=== PATIENT | male | born 1950 | race Caucasian/White ===

== ENCOUNTER 2019-06-27 11:25 | Day surgery (SDC) | payer BC, MEDICARE ==
[2019-06-27] MEDS ORDERED: PROPOFOL 10 MG/ML VIAL IV ONE (11:26)
[2019-06-27] MEDS ORDERED: LIDOCAINE 2% MDV (20MG/ML) 20ML VIAL IV ONE (11:26)
--- NOTE | 2019-06-28 07:40 | Operative Note ---
DATE: 06/27/2019 OPERATION: COLONOSCOPY to the cecum with cold snare polypectomy. INDICATION: Prior history of adenomatous polyps. Patient with family history of colon cancer (brother). The patient returns today after 5 years for surveillance. ANESTHESIA: Intravenous sedation was administered by the department of anesthesiology and included Diprivan titrated to effect. PROCEDURE: Following informed consent from this alert individual including a discussion of the risks and benefits of the procedure and an opportunity for the patient to ask questions, the patient was in the left lateral decubitus position. A digital rectal examination was performed. No abnormalities were noted. Prostate was palpably normal. Following this, the Olympus [id number] video colonoscope was inserted into the rectum without resistance. The rectal mucosa had a normal appearance with normal folds and distensibility. The colonoscope was advanced up through the colon to the level of the cecum without much difficulty. Throughout the bowel the mucosa appeared normal, the folds were normal, and the bowel was fairly well distensible. The cecum was defined by noting the appendiceal orifice and ileocecal valve. The terminal ileum was cannulated and found to be normal as well. From the base of the cecum, the colonoscope was then withdrawn. The colon preparation was good. A 5 mm sessile polyp was noted in the proximal sigmoid colon. This was easily removed with cold snare polypectomy and suctioned through the colonoscope into a collection trap. No other changes were appreciated. Retroflexion in the rectum was endoscopically normal. The instrument was straightened and removed. The patient tolerated the procedure well and was returned to the recovery area in stable condition. IMPRESSION: 1. A 5 mm proximal sigmoid polyp removed with cold snare polypectomy. 2. Otherwise unremarkable colonoscope to the cecum. RECOMMENDATIONS: Further recommendations will be forthcoming pending results of pathology obtained today. Followup will also be with Julio Kaur DO. As always, thank you for allowing me to participate in the care of your patient. CICI
== END 2019-06-27 13:45 | disposition home or self-care (01) ==
LOC: HOP 11:25
PROVIDERS: ATTEND Internal Medicine Gastroenterology
DX: Z12.11 Encounter for screening for malignant neoplasm of colon (principal); Z86.010 Personal history of colon polyps; D12.5 Benign neoplasm of sigmoid colon; Z80.0 Family history of malignant neoplasm of digestive organs; E78.00 Pure hypercholesterolemia, unspecified